=== PATIENT | male | born 1945 | race Caucasian/White ===

== ENCOUNTER 2022-01-17 10:27 | Outpatient (CLI) | payer MEDICARE, OTHER | END 2022-01-17 10:28 | disposition home or self-care (01) | LOC: CSHLAB 10:27 | PROVIDERS: ATTEND Internal Medicine Gastroenterology | DX: Z20.822 Contact with and (suspected) exposure to COVID-19 (principal); K63.5 Polyp of colon | CPT/HCPCS: 87811 ==

== ENCOUNTER 2022-01-20 06:13 | Day surgery (SDC) | payer MEDICARE, OTHER ==
[2022-01-18 13:28] VITALS: BMI 29.8
[2022-01-20] MEDS ORDERED: Lidocaine 1% MPF 2 ML VIAL ONE (08:00)
[2022-01-20] MEDS ORDERED: PROPOFOL 40 ML ONE (08:32)
[2022-01-20] MEDS ORDERED: Lidocaine 1% PF 5 ML VIAL ONE (08:32)
[2022-01-20] MEDS ORDERED: PROPOFOL 20 ML ONE ×4 (08:53→09:45)
== END 2022-01-20 10:24 | disposition home or self-care (01) ==
LOC: CSHSDC 06:13
PROVIDERS: ATTEND Internal Medicine Gastroenterology
PROC: 0DBK8ZZ Excision of Ascending Colon, Via Natural or Artificial Opening Endoscopic (ICD-10-PCS; principal; 2022-01-20)
PROC: 0DBL8ZZ Excision of Transverse Colon, Via Natural or Artificial Opening Endoscopic (ICD-10-PCS; 2022-01-20)
DX: D12.3 Benign neoplasm of transverse colon (principal); D12.2 Benign neoplasm of ascending colon; K57.30 Diverticulosis of large intestine without perforation or abscess without bleeding; K64.9 Unspecified hemorrhoids; I10 Essential (primary) hypertension; E78.5 Hyperlipidemia, unspecified; Z88.5 Allergy status to narcotic agent; Z88.8 Allergy status to other drugs, medicaments and biological substances; Z20.822 Contact with and (suspected) exposure to COVID-19
CPT/HCPCS: 88305; J2704

== ENCOUNTER 2022-04-19 10:30 | Outpatient (CLI) | payer MEDICARE, OTHER | END 2022-04-19 10:31 | disposition home or self-care (01) | LOC: CSHCT 10:30 | PROVIDERS: ATTEND Anesthesiology Pain Medicine | DX: M54.16 Radiculopathy, lumbar region (principal); Z98.890 Other specified postprocedural states; M47.816 Spondylosis without myelopathy or radiculopathy, lumbar region | CPT/HCPCS: 72131 ==

== ENCOUNTER 2022-06-21 10:24 | Outpatient (CLI) | payer MEDICARE, OTHER | END 2022-06-21 10:25 | disposition home or self-care (01) | LOC: CSHRAD 10:24 | PROVIDERS: ATTEND Internal Medicine Cardiovascular Disease | DX: R06.02 Shortness of breath (principal); R06.09 Other forms of dyspnea | CPT/HCPCS: 71046 ==